=== PATIENT | female | born 1960 | race Caucasian/White ===

== ENCOUNTER 2016-11-07 08:10 | Outpatient (CLI) | payer BC ==
[2016-11-07 08:53] LABS: eGFR (African) > 60; eGFR (Non-African) > 60
== END 2016-11-07 08:30 ==
LOC: LAB 08:10
PROVIDERS: ATTEND Family Medicine
DX: Z00.00 Encounter for general adult medical examination without abnormal findings (principal)
CPT/HCPCS: 36415; 80053; 80061

== ENCOUNTER 2017-12-04 07:50 | Outpatient (CLI) | payer BC ==
[2017-12-04 08:47] LABS: eGFR (African) > 60; eGFR (Non-African) > 60
== END 2017-12-04 07:52 ==
LOC: LAB 07:50
PROVIDERS: ATTEND Family Medicine
DX: Z00.00 Encounter for general adult medical examination without abnormal findings (principal)
CPT/HCPCS: 36415; 80053; 80061